=== PATIENT | female | born 1945 | race African-American/Black ===

== ENCOUNTER 2017-03-02 10:34 | Emergency (ER) | payer MEDICARE, MEDICAID ==
[~2017-03-02] VITALS: Ht 172.7 cm; Wt 67.0 kg
[~2017-03-02 10:34] MED LIST: AM10 GT; ASCO500C18 PO; ATOR10TA69 PO; DOCU-138 PO; ERGO500013 PO; FAMO20TA8 PO; FERR325T6 PO; FURO-152 PO; Imdur PO; METO-539 PO; MONT10TA21 PO; NITR0.4T49 SL; POTA10CA42 PO; PREG50CA PO; RIVA10TA PO; TRAM50TA3 PO
[2017-03-02 12:11] LABS: BASOPHILS % 0.6 % (0.0-2.0); EOSINOPHILS % 2.3 % (0.0-5.0); HEMOGLOBIN. 12.2 g/dL (12.0-16.0); LYMPHOCYTES % 19.5 % (20.0-50.0); MEAN CORPUSCULAR HEMOGLOBIN 24.9 pg (28.0-32.0); MEAN CORPUSCULAR VOLUME 79.6 fL (81.0-99.0); MEAN PLATELET VOLUME 8.4 fl (7.4-10.4); MONOCYTES % 6.5 % (2.0-8.0); NEUTROPHILS % 71.1 % (40.0-76.0); PLATELET 278 x1000/uL (130-400); RED BLOOD CELL COUNT 4.89 mill/uL (4.2-5.4); RED CELL DISTRIBUTION WIDTH 16.6 % (11.6-14.6)
[2017-03-02 12:13] LABS: INR 1.6; PARTIAL THROMBOPLASTIN TIME 39.4 sec (23.4-31.0); PROTHROMBIN TIME 16.7 sec (9.4-11.6)
[2017-03-02 12:20] LABS: CARBON DIOXIDE 30 mEq/L (21-32); CHLORIDE 110 mEq/L (98-107)
[2017-03-02 12:22] LABS: TROPONIN I < 0.02 ng/mL (0.00-0.04)
[2017-03-02] MEDS ORDERED: FUROSEMIDE 40MG/4ML VIAL IVP ONE (13:00)
[2017-03-02] MEDS ORDERED: CLONIDINE 0.1MG TABLET PO ONE (13:15)
[2017-03-02] MEDS ORDERED: FUROSEMIDE 40MG TABLET PO ONE (14:00)
[2017-03-02 14:02] VITALS: BP 172/111
== END 2017-03-02 15:10 | disposition home or self-care (01) ==
LOC: ER 10:59
DX: I11.0 Hypertensive heart disease with heart failure (principal); E78.00 Pure hypercholesterolemia, unspecified; J45.909 Unspecified asthma, uncomplicated; I25.2 Old myocardial infarction; Z95.0 Presence of cardiac pacemaker; Z88.6 Allergy status to analgesic agent; Z88.8 Allergy status to other drugs, medicaments and biological substances
CPT/HCPCS: 36415; 71010; 80053; 83690; 83880; 84443; 84484; 85025; 85610; 85730; 93005; 99285

== ENCOUNTER → 2017-04-23 | Outpatient (CLI) | payer MEDICARE, MEDICAID ==
[~2017-04-23] MED LIST changes: +HYDRALAZINE 20MG/ML VIAL IV ONE; +REGADENOSON 0.4 MG/5 ML IV ONE
== END | disposition home or self-care (01) ==
LOC: NM 07:36
PROVIDERS: ATTEND Internal Medicine Cardiovascular Disease
DX: I25.2 Old myocardial infarction (principal); I42.9 Cardiomyopathy, unspecified; I44.7 Left bundle-branch block, unspecified
CPT/HCPCS: 78452; 93017; A9500; J2785

== ENCOUNTER → 2018-04-11 | Outpatient (CLI) | payer MEDICARE, MEDICAID ==
[~2018-04-11] MED LIST changes: -HYDRALAZINE 20MG/ML VIAL IV ONE; -REGADENOSON 0.4 MG/5 ML IV ONE
== END | disposition home or self-care (01) ==
LOC: US 07:38
PROVIDERS: ATTEND Internal Medicine Nephrology
DX: N28.1 Cyst of kidney, acquired (principal)
CPT/HCPCS: 76700

== ENCOUNTER → 2018-09-01 | Outpatient (CLI) | payer MEDICARE, MEDICAID | END | disposition home or self-care (01) | LOC: PVL 09:39 | PROVIDERS: ATTEND Internal Medicine Cardiovascular Disease | DX: I73.9 Peripheral vascular disease, unspecified (principal) | CPT/HCPCS: 93923 ==

== ENCOUNTER 2020-07-12 05:54 | Inpatient (IN) | payer MEDICARE, MEDICAID ==
[~2020-07-12] VITALS: Ht 172.7 cm; Wt 72.6 kg
[~2020-07-12 05:54] MED LIST changes: -AM10 GT; +AMIT10TA7 GT
[2020-07-12] MEDS ORDERED: MORPHINE SULFATE 4 MG/ML CPJ (NOT FOR IM USE) IV SCH (07:30)
[2020-07-12 07:54] LABS: BASOPHILS % 0.3 % (0.0-2.0); EOSINOPHILS % 1.5 % (0.0-5.0); HEMATOCRIT. 36.2 % (36.0-48.0); HEMOGLOBIN. 11.5 g/dL (12.0-16.0); LYMPHOCYTES % 14.5 % (20.0-50.0); MEAN CORPUSCULAR VOLUME 81.7 fL (81.0-99.0); MEAN PLATELET VOLUME 9.6 fl (7.4-10.4); NEUTROPHILS % 76.7 % (40.0-76.0); PLATELET 176 x1000/uL (130-400); RED BLOOD CELL COUNT 4.43 mill/uL (4.2-5.4); RED CELL DISTRIBUTION WIDTH 17.2 % (11.6-14.6)
[2020-07-12 08:03] LABS: CHLORIDE 109 mEq/L (98-107)
[2020-07-12 08:04] LABS: INR 1.9; PROTHROMBIN TIME 19.6 sec (9.6-11.0)
[2020-07-12 09:15] LABS: T4 FREE 1.33 ng/dL (0.76-1.46)
[2020-07-12] MEDS ORDERED: MAGNESIUM 2 G PREMIX 50 ML IV SCH (09:15)
[2020-07-12] MEDS ORDERED: LORAZEPAM 2MG/ML CPJ IV PRN (10:00)
[2020-07-12] MEDS ORDERED: ONDANSETRON HCL 4MG/2ML INJ IV PRN (10:00)
[2020-07-12] MEDS ORDERED: POTASSIUM CHLORIDE INJ 40 MEQ in DEXT 5% WATER 250 ML IV SCH (10:00)
[2020-07-12] MEDS ORDERED: ACETAMINOPHEN 325MG TABLET PO PRN (10:00)
[2020-07-12] MEDS ORDERED: MORPHINE SULFATE 2 MG/ML CPJ (NOT FOR IM USE) IV PRN (10:00)
[2020-07-12 10:16] LABS: PHOSPHORUS 3.3 mg/dL (2.5-4.9)
[2020-07-12 15:20] LABS: CREATINE KINASE MB FRACTION 2.8 ng/mL (0.5-3.6)
[2020-07-12] MEDS: DOCUSATE SODIUM 100MG CAPSULE PO SCH (17:00)
[2020-07-12 17:53] VITALS: BP 184/23
[2020-07-12] MEDS: RIVAROXABAN 10 MG TABLET PO SCH (17:59)
[2020-07-12] MEDS: CLONIDINE 0.1MG TABLET PO PRN (18:00)
[2020-07-12 18:58] VITALS: BP 184/23
[2020-07-12 20:01] VITALS: BP 114/44
[2020-07-12 21:08] VITALS: BP 150/97
[2020-07-12] MEDS: ATORVASTATIN CALCIUM 10MG TABLET PO SCH (21:14)
[2020-07-12] MEDS: METOPROLOL TARTRATE 50MG TABLET PO SCH (21:14)
[2020-07-12] MEDS: PREGABALIN 50 MG CAPSULE PO SCH (21:14)
[2020-07-12] MEDS: AMITRIPTYLINE 10MG TABLET GT SCH (21:20)
[2020-07-12 22:01] VITALS: BP 154/103
[2020-07-12] MEDS: CLONIDINE 0.1MG TABLET PO SCH (23:59)
[2020-07-13] VITALS (13 sets, daily range): BP systolic 141–176; BP diastolic 81–111
[2020-07-13 01:49] LABS: CREATINE KINASE MB FRACTION 2.7 ng/mL (0.5-3.6)
[2020-07-13] MEDS: CLONIDINE 0.1MG TABLET PO SCH ×3 (06:33→22:48)
[2020-07-13 06:42] LABS: BASOPHILS % 0.3 % (0.0-2.0); EOSINOPHILS % 2.4 % (0.0-5.0); HEMATOCRIT. 36.4 % (36.0-48.0); HEMOGLOBIN. 11.5 g/dL (12.0-16.0); LYMPHOCYTES % 21.6 % (20.0-50.0); MEAN CORPUSCULAR VOLUME 82.6 fL (81.0-99.0); MEAN PLATELET VOLUME 9.9 fl (7.4-10.4); MONOCYTES % 6.3 % (2.0-8.0); NEUTROPHILS % 69.4 % (40.0-76.0); PLATELET 171 x1000/uL (130-400); RED BLOOD CELL COUNT 4.41 mill/uL (4.2-5.4); RED CELL DISTRIBUTION WIDTH 16.8 % (11.6-14.6)
[2020-07-13 06:52] LABS: CHLORIDE 112 mEq/L (98-107)
[2020-07-13 07:04] LABS: CREATINE KINASE 93 IU/L (26-192); HDL CHOLESTEROL 56 mg/dL (40-59); LDL CHOLESTEROL 79 mg/dL (5-100)
[2020-07-13 07:08] LABS: CREATINE KINASE MB FRACTION 2.7 ng/mL (0.5-3.6)
[2020-07-13] MEDS ORDERED: FAMOTIDINE(NEO) 1MG/ML SUSP PO SCH (09:00)
[2020-07-13] MEDS: FAMOTIDINE 20MG TABLET PO SCH (09:23)
[2020-07-13] MEDS: FUROSEMIDE 20MG TABLET PO SCH (09:23)
[2020-07-13] MEDS: DOCUSATE SODIUM 100MG CAPSULE PO SCH ×2 (09:23→17:45)
[2020-07-13] MEDS: IPRATROPIUM/ALBUTEROL 0.5-3(2.5)MG/3ML NEB HHN PRN ×3 (09:24→20:46)
[2020-07-13] MEDS: METOPROLOL TARTRATE 50MG TABLET PO SCH ×2 (09:26→20:11)
[2020-07-13] MEDS: CLONIDINE 0.1MG TABLET PO PRN (12:31)
[2020-07-13] MEDS: RIVAROXABAN 10 MG TABLET PO SCH (17:45)
[2020-07-13] MEDS: MONTELUKAST SODIUM 10MG TABLET PO SCH (17:45)
[2020-07-13] MEDS: ATORVASTATIN CALCIUM 10MG TABLET PO SCH (20:12)
[2020-07-13] MEDS: PREGABALIN 50 MG CAPSULE PO SCH (20:12)
[2020-07-13] MEDS: AMITRIPTYLINE 10MG TABLET GT SCH (20:12)
[2020-07-14] VITALS (13 sets, daily range): BP systolic 119–179; BP diastolic 57–108
[2020-07-14] MEDS: CLONIDINE 0.1MG TABLET PO SCH ×3 (06:13→22:00)
[2020-07-14] MEDS: IPRATROPIUM/ALBUTEROL 0.5-3(2.5)MG/3ML NEB HHN PRN ×2 (07:34→20:55)
[2020-07-14] MEDS: FUROSEMIDE 20MG TABLET PO SCH (09:17)
[2020-07-14] MEDS: FAMOTIDINE 20MG TABLET PO SCH (09:17)
[2020-07-14] MEDS: DOCUSATE SODIUM 100MG CAPSULE PO SCH ×2 (09:17→18:09)
[2020-07-14] MEDS: METOPROLOL TARTRATE 50MG TABLET PO SCH ×2 (09:18→21:00)
[2020-07-14 16:01] LABS: BASOPHILS % 0.3 % (0.0-2.0); EOSINOPHILS % 1.8 % (0.0-5.0); HEMATOCRIT. 35.5 % (36.0-48.0); HEMOGLOBIN. 11.3 g/dL (12.0-16.0); LYMPHOCYTES % 13.7 % (20.0-50.0); MEAN CORPUSCULAR HEMOGLOBIN 25.9 pg (28.0-32.0); MEAN CORPUSCULAR VOLUME 81.2 fL (81.0-99.0); MONOCYTES % 7.5 % (2.0-8.0); NEUTROPHILS % 76.7 % (40.0-76.0); PLATELET 177 x1000/uL (130-400); RED BLOOD CELL COUNT 4.37 mill/uL (4.2-5.4); RED CELL DISTRIBUTION WIDTH 16.3 % (11.6-14.6)
[2020-07-14] MEDS: MONTELUKAST SODIUM 10MG TABLET PO SCH (18:09)
[2020-07-14] MEDS: ISOSORB DINIT/HYDRALAZINE HCL 20/37.5MG TABLET PO SCH (18:10)
[2020-07-14] MEDS: CLONIDINE 0.1MG TABLET PO PRN (19:23)
[2020-07-14] MEDS: ATORVASTATIN CALCIUM 10MG TABLET PO SCH (20:28)
[2020-07-14] MEDS: AMITRIPTYLINE 10MG TABLET GT SCH (20:28)
[2020-07-14] MEDS: PREGABALIN 50 MG CAPSULE PO SCH (20:28)
[2020-07-14] MEDS: HYDRALAZINE HCL 50MG TABLET PO SCH (21:38)
[2020-07-15] VITALS (13 sets, daily range): BP systolic 113–159; BP diastolic 63–97
[2020-07-15] MEDS: HYDRALAZINE HCL 50MG TABLET PO SCH ×3 (05:31→21:31)
[2020-07-15 06:42] LABS: HEMATOCRIT 33.8 % (36.0-48.0); MEAN CORPUSCULAR HEMOGLOBIN 26.5 pg (28.0-32.0); MEAN CORPUSCULAR VOLUME 81.7 fL (81.0-99.0); PLATELET 153 x1000/uL (130-400); RED BLOOD CELL COUNT 4.14 mill/uL (4.2-5.4); RED CELL DISTRIBUTION WIDTH 16.7 % (11.6-14.6)
[2020-07-15] MEDS: CLONIDINE 0.1MG TABLET PO SCH ×3 (06:43→21:31)
[2020-07-15] MEDS: FUROSEMIDE 20MG TABLET PO SCH (08:29)
[2020-07-15] MEDS: ISOSORB DINIT/HYDRALAZINE HCL 20/37.5MG TABLET PO SCH ×2 (08:30→17:59)
[2020-07-15] MEDS: DOCUSATE SODIUM 100MG CAPSULE PO SCH ×2 (08:30→17:59)
[2020-07-15] MEDS: FAMOTIDINE 20MG TABLET PO SCH (08:30)
[2020-07-15] MEDS: METOPROLOL TARTRATE 50MG TABLET PO SCH ×2 (08:30→20:20)
[2020-07-15] MEDS ORDERED: POTASSIUM CHLORIDE INJ 40 MEQ in DEXT 5% WATER 250 ML IV NR (09:30)
[2020-07-15] MEDS: IPRATROPIUM/ALBUTEROL 0.5-3(2.5)MG/3ML NEB HHN PRN (16:38)
[2020-07-15] MEDS: MONTELUKAST SODIUM 10MG TABLET PO SCH (17:59)
[2020-07-15] MEDS: PREGABALIN 50 MG CAPSULE PO SCH (20:20)
[2020-07-15] MEDS: ATORVASTATIN CALCIUM 10MG TABLET PO SCH (20:21)
[2020-07-15] MEDS: AMITRIPTYLINE 10MG TABLET GT SCH (20:21)
[2020-07-16] VITALS (12 sets, daily range): BP systolic 102–155; BP diastolic 45–91
[2020-07-16] MEDS: IPRATROPIUM/ALBUTEROL 0.5-3(2.5)MG/3ML NEB HHN PRN ×2 (03:56→21:39)
[2020-07-16] MEDS: HYDRALAZINE HCL 50MG TABLET PO SCH ×3 (05:23→21:37)
[2020-07-16] MEDS: CLONIDINE 0.1MG TABLET PO SCH ×3 (06:31→22:00)
[2020-07-16] MEDS: ISOSORB DINIT/HYDRALAZINE HCL 20/37.5MG TABLET PO SCH (09:04)
[2020-07-16] MEDS: METOPROLOL TARTRATE 50MG TABLET PO SCH ×2 (09:05→20:41)
[2020-07-16] MEDS: DOCUSATE SODIUM 100MG CAPSULE PO SCH ×2 (09:05→17:57)
[2020-07-16] MEDS: FUROSEMIDE 20MG TABLET PO SCH (09:05)
[2020-07-16] MEDS: FAMOTIDINE 20MG TABLET PO SCH (09:05)
[2020-07-16] MEDS ORDERED: ENOXAPARIN 40MG/0.4ML SYR SUBCUT NR (10:45)
[2020-07-16 11:36] LABS: BASOPHILS % 0.4 % (0.0-2.0); EOSINOPHILS % 3.8 % (0.0-5.0); HEMATOCRIT. 34.8 % (36.0-48.0); HEMOGLOBIN. 11.1 g/dL (12.0-16.0); LYMPHOCYTES % 14.9 % (20.0-50.0); MEAN CORPUSCULAR HEMOGLOBIN 25.9 pg (28.0-32.0); MEAN CORPUSCULAR VOLUME 81.5 fL (81.0-99.0); MEAN PLATELET VOLUME 9.7 fl (7.4-10.4); MONOCYTES % 9.3 % (2.0-8.0); NEUTROPHILS % 71.6 % (40.0-76.0); PLATELET 194 x1000/uL (130-400); RED BLOOD CELL COUNT 4.28 mill/uL (4.2-5.4); RED CELL DISTRIBUTION WIDTH 16.6 % (11.6-14.6)
[2020-07-16] MEDS: MONTELUKAST SODIUM 10MG TABLET PO SCH (17:57)
[2020-07-16] MEDS: ATORVASTATIN CALCIUM 10MG TABLET PO SCH (20:39)
[2020-07-16] MEDS: AMITRIPTYLINE 10MG TABLET GT SCH (20:40)
[2020-07-16] MEDS: PREGABALIN 50 MG CAPSULE PO SCH (20:41)
[2020-07-17] VITALS (10 sets, daily range): BP systolic 118–195; BP diastolic 60–107
[2020-07-17] MEDS: HYDRALAZINE HCL 50MG TABLET PO SCH ×2 (05:05→14:06)
[2020-07-17] MEDS: CLONIDINE 0.1MG TABLET PO SCH ×2 (06:29→14:06)
[2020-07-17 08:16] LABS: BASOPHILS % 0.5 % (0.0-2.0); EOSINOPHILS % 3.5 % (0.0-5.0); HEMATOCRIT. 36.7 % (36.0-48.0); HEMOGLOBIN. 11.6 g/dL (12.0-16.0); LYMPHOCYTES % 19.5 % (20.0-50.0); MEAN CORPUSCULAR HEMOGLOBIN 25.7 pg (28.0-32.0); MEAN CORPUSCULAR VOLUME 81.8 fL (81.0-99.0); MEAN PLATELET VOLUME 9.8 fl (7.4-10.4); MONOCYTES % 8.7 % (2.0-8.0); NEUTROPHILS % 67.8 % (40.0-76.0); PLATELET 219 x1000/uL (130-400); RED BLOOD CELL COUNT 4.49 mill/uL (4.2-5.4); RED CELL DISTRIBUTION WIDTH 16.8 % (11.6-14.6)
[2020-07-17] MEDS: FUROSEMIDE 20MG TABLET PO SCH (08:36)
[2020-07-17] MEDS: FAMOTIDINE 20MG TABLET PO SCH (08:36)
[2020-07-17] MEDS: DOCUSATE SODIUM 100MG CAPSULE PO SCH (08:36)
[2020-07-17] MEDS: METOPROLOL TARTRATE 50MG TABLET PO SCH (08:37)
[2020-07-17] MEDS: CLONIDINE 0.1MG TABLET PO PRN (15:41)
== END 2020-07-17 16:09 | disposition short-term general hospital (02) | DRG 314 ==
LOC: ER 05:54 → 3WST 08:37 → ENRESERV 14:31 → EDBEDREQ 16:31
PROVIDERS: ADMIT Internal Medicine Nephrology; ATTEND Internal Medicine Nephrology
DX: T82.118A Breakdown (mechanical) of other cardiac electronic device, initial encounter (principal); I49.01 Ventricular fibrillation; I13.0 Hypertensive heart and chronic kidney disease with heart failure and stage 1 through stage 4 chronic kidney disease, or unspecified chronic kidney disease; I50.22 Chronic systolic (congestive) heart failure; F41.9 Anxiety disorder, unspecified; I25.10 Atherosclerotic heart disease of native coronary artery without angina pectoris; I73.9 Peripheral vascular disease, unspecified; Z96.649 Presence of unspecified artificial hip joint; J44.9 Chronic obstructive pulmonary disease, unspecified; I48.0 Paroxysmal atrial fibrillation; I44.7 Left bundle-branch block, unspecified; E87.6 Hypokalemia; E78.5 Hyperlipidemia, unspecified; I65.29 Occlusion and stenosis of unspecified carotid artery; Z20.822 Contact with and (suspected) exposure to COVID-19; Y71.2 Prosthetic and other implants, materials and accessory cardiovascular devices associated with adverse incidents; Z79.899 Other long term (current) drug therapy; Z79.01 Long term (current) use of anticoagulants; Z95.5 Presence of coronary angioplasty implant and graft; Z95.810 Presence of automatic (implantable) cardiac defibrillator; Z82.49 Family history of ischemic heart disease and other diseases of the circulatory system; Z88.5 Allergy status to narcotic agent; Z88.8 Allergy status to other drugs, medicaments and biological substances; I25.2 Old myocardial infarction; Y92.89 Other specified places as the place of occurrence of the external cause; N18.1 Chronic kidney disease, stage 1
CPT/HCPCS: 36415; 71045; 80048; 80053; 80061; 82140; 82550; 82553; 83036; 83735; 83880; 84100; 84439; 84443; 84484; 85025; 85027; 85379; 87426; 93005; 93306; 94640; 99291; J1650; J2270; J3475; J3480; J7060

== ENCOUNTER → 2020-08-01 | Outpatient (CLI) | payer MEDICARE, MEDICAID | END | disposition home or self-care (01) | LOC: RAD 14:24 | PROVIDERS: ATTEND Internal Medicine Clinical Cardiac Electrophysiology | DX: J94.9 Pleural condition, unspecified (principal); I51.7 Cardiomegaly; Z95.810 Presence of automatic (implantable) cardiac defibrillator | CPT/HCPCS: 71046 ==

== ENCOUNTER 2021-08-21 20:47 | Emergency (ER) | payer MEDICARE, MEDICAID ==
[~2021-08-21] VITALS: Ht 172.7 cm; Wt 70.5 kg
[2021-08-21 21:50] VITALS: BP 157/79
== END 2021-08-22 01:16 | disposition left against medical advice (07) ==
LOC: ER 20:47
DX: Z53.21 Procedure and treatment not carried out due to patient leaving prior to being seen by health care provider (principal)

== ENCOUNTER 2021-10-03 09:53 | Emergency (ER) | payer MEDICARE, MEDICAID ==
[~2021-10-03] VITALS: Ht 170.2 cm; Wt 82.0 kg
[2021-10-03 10:15] VITALS: BP 131/84
[2021-10-03] MEDS: ACETAMINOPHEN 500MG TABLET PO ONE ×2 (10:30→11:00)
[2021-10-03] MEDS ORDERED: ACET-2708 MT (11:52)
== END 2021-10-03 12:49 | disposition home or self-care (01) ==
LOC: ER 10:36
DX: S70.11XA Contusion of right thigh, initial encounter (principal); J44.1 Chronic obstructive pulmonary disease with (acute) exacerbation; I25.2 Old myocardial infarction; I10 Essential (primary) hypertension; Z88.5 Allergy status to narcotic agent; Z79.899 Other long term (current) drug therapy; W18.30XA Fall on same level, unspecified, initial encounter; Y93.01 Activity, walking, marching and hiking; Y92.89 Other specified places as the place of occurrence of the external cause; Y99.8 Other external cause status
CPT/HCPCS: 73590; 73610; 73630; 99284

== ENCOUNTER 2023-09-08 08:13 | Inpatient (IN) | payer MEDICARE, MEDICAID ==
[~2023-09-08] VITALS: Ht 172.7 cm; Wt 66.3 kg
[~2023-09-08 08:13] MED LIST changes: +ACET-2708 MT; -AMIT10TA7 GT; +AMIT10TA7 PO; +MONT-46 PO; -MONT10TA21 PO; -POTA10CA42 PO; +POTA10CA83 PO
[2023-09-08 08:40] LABS: BASOPHILS % 0.4 % (0.0-2.0); EOSINOPHILS % 2.5 % (0.0-5.0); HEMATOCRIT. 35.5 % (36.0-48.0); HEMOGLOBIN. 11.1 g/dL (12.0-16.0); LYMPHOCYTES % 18.3 % (20.0-50.0); MEAN CORPUSCULAR HGB CONC 31.4 g/dL (31.0-37.0); MEAN CORPUSCULAR VOLUME 82.7 fL (81.0-99.0); MEAN PLATELET VOLUME 9.7 fl (7.4-10.4); MONOCYTES % 6.5 % (2.0-8.0); NEUTROPHILS % 72.3 % (40.0-76.0); PLATELET 184 x1000/uL (130-400); RED BLOOD CELL COUNT 4.29 mill/uL (4.2-5.4); RED CELL DISTRIBUTION WIDTH 16.2 % (11.6-14.6); WHITE BLOOD COUNT 6.2 x1000/uL (4.5-11.0)
[2023-09-08 08:51] LABS: CHLORIDE 108 mEq/L (98-107); POTASSIUM 3.3 mEq/L (3.5-5.1); SODIUM 143 mEq/L (136-145)
[2023-09-08 08:52] LABS: CALCIUM 9.6 mg/dL (8.7-10.4); CARBON DIOXIDE 26 mEq/L (21-32)
[2023-09-08 08:56] LABS: CREATININE 2.1 mg/dL (0.6-1.0)
[2023-09-08 08:57] LABS: GLUCOSE 92 mg/dL (70-105); UREA NITROGEN BLOOD 25 mg/dL (9-23)
[2023-09-08 08:59] LABS: ALANINE AMINOTRANSFERASE 9 IU/L (10-49); ALBUMIN 3.9 g/dL (3.2-4.8); ASPARTATE AMINOTRANSFERASE 14 IU/L (<34); BILIRUBIN TOTAL 0.5 mg/dL (0.1-1.0); PROTEIN TOTAL 7.3 g/dL (6.0-8.3)
[2023-09-08] MEDS ORDERED: ONDANSETRON HCL 4MG/2ML INJ IV PRN ×2 (10:15→16:00)
[2023-09-08] MEDS ORDERED: ACETAMINOPHEN 325MG TABLET PO PRN ×3 (10:15→16:00)
[2023-09-08] MEDS ORDERED: CLON0.1T PO (10:40)
[2023-09-08] MEDS ORDERED: ALPR-392 PO (10:40)
[2023-09-08] MEDS ORDERED: DRON400T PO (10:40)
[2023-09-08] MEDS ORDERED: APIX2.5T PO (10:40)
[2023-09-08] MEDS ORDERED: SACU1TAB PO (10:40)
[2023-09-08] MEDS ORDERED: MONT-39 PO (10:42)
[2023-09-08] MEDS ORDERED: PREG50CA64 PO (10:42)
[2023-09-08] MEDS: POTASSIUM CHLORIDE 20MEQ TABLET SR PO NR (15:16)
[2023-09-08] MEDS ORDERED: IPRATROPIUM/ALBUTEROL 0.5-3(2.5)MG/3ML NEB HHN PRN (16:00)
[2023-09-08] MEDS ORDERED: DOCUSATE SODIUM 100MG CAPSULE PO PRN (16:00)
[2023-09-08] MEDS ORDERED: NON FORMULARY PATIENT HOME MED XX SCH (16:30)
[2023-09-08 17:15] LABS: TROPONIN I HIGH SENSITIVITY 5 ng/L (3.0-34)
[2023-09-08] MEDS ORDERED: ENOXAPARIN 30MG/0.3ML SYR SUBCUT SCH (18:00)
[2023-09-08] MEDS ORDERED: DRONEDARONE 400MG TABLET PO SCH (21:00)
[2023-09-08] MEDS ORDERED: METOPROLOL TARTRATE 50MG TABLET PO SCH (21:00)
[2023-09-08] MEDS: METOPROLOL TARTRATE 25MG TABLET PO SCH (21:58)
[2023-09-08] MEDS: APIXABAN 2.5 MG TABLET PO SCH (21:58)
[2023-09-08] MEDS: PREGABALIN 50 MG CAPSULE PO SCH (21:59)
[2023-09-08] MEDS: AMITRIPTYLINE 10MG TABLET GT SCH (21:59)
[2023-09-08 23:50] VITALS: BP 160/106; PULSE 70; RESP 17; TEMP 97.7
[2023-09-08 23:54] LABS: CLARITY URINE CLEAR (CLEAR); COLOR URINE YELLOW (YELLOW); GLUCOSE URINE NEGATIVE (NEGATIVE); KETONES URINE NEGATIVE (NEGATIVE); LEUKOCYTE ESTERASE URINE NEGATIVE (NEGATIVE); NITRITE URINE NEGATIVE (NEGATIVE); OCCULT BLOOD URINE NEGATIVE (NEGATIVE); PH URINE 5.5 (4.5-8.0); PROTEIN URINE TRACE (NEGATIVE); SPECIFIC GRAVITY URINE 1.012 (1.005-1.030); UROBILINOGEN URINE 0.2 E.U./dL (0.2-1.0)
[2023-09-09] VITALS: BP 146/109; PULSE 70; RESP 14; TEMP 97.7
[2023-09-09 00:07] LABS: *AMPHETAMINES SCREEN URINE NEGATIVE (NEGATIVE); *BARBITURATES SCREEN URINE NEGATIVE (NEGATIVE); *BENZODIAZEPINES SCREEN URINE NEGATIVE (NEGATIVE); *COCAINE SCREEN URINE NEGATIVE (NEGATIVE); CANNABINOID URINE SCREEN NEGATIVE (NEGATIVE); ECSTASY MDMA SCREEN URINE NEGATIVE (NEGATIVE); METHADONE URINE SCREEN NEGATIVE (NEGATIVE); OPIATES URINE SCREEN NEGATIVE (NEGATIVE); PHENCYCLIDINE URINE SCREEN NEGATIVE (NEGATIVE)
[2023-09-09 00:20] LABS: RBC URINE 0-2 /hpf (0-2); WBC URINE NONE SEEN /hpf (0-2)
[2023-09-09 00:21] LABS: BACTERIA URINE NONE SEEN; SQUAMOUS EPITHELIAL CELL URINE 1+ /lpf (RARE/1+)
[2023-09-09] MEDS: CLONIDINE 0.1MG TABLET PO PRN (00:28)
[2023-09-09 04:00] VITALS: BP 137/89; PULSE 70; RESP 15; TEMP 97.5
[2023-09-09 06:31] LABS: POTASSIUM 3.7 mEq/L (3.5-5.1)
[2023-09-09 06:32] LABS: CALCIUM 9.8 mg/dL (8.7-10.4)
[2023-09-09 06:34] LABS: BASOPHILS % 0.4 % (0.0-2.0); EOSINOPHILS % 3.2 % (0.0-5.0); HEMATOCRIT. 37.4 % (36.0-48.0); HEMOGLOBIN. 11.7 g/dL (12.0-16.0); LYMPHOCYTES % 18.5 % (20.0-50.0); MEAN CORPUSCULAR HGB CONC 31.2 g/dL (31.0-37.0); MEAN CORPUSCULAR VOLUME 83.3 fL (81.0-99.0); MEAN PLATELET VOLUME 9.8 fl (7.4-10.4); MONOCYTES % 6.4 % (2.0-8.0); NEUTROPHILS % 71.5 % (40.0-76.0); PLATELET 177 x1000/uL (130-400); RED BLOOD CELL COUNT 4.49 mill/uL (4.2-5.4); RED CELL DISTRIBUTION WIDTH 16.2 % (11.6-14.6); WHITE BLOOD COUNT 7.9 x1000/uL (4.5-11.0)
[2023-09-09 06:37] LABS: CREATININE 1.8 mg/dL (0.6-1.0)
[2023-09-09 06:42] LABS: T4 FREE 1.15 ng/dL (0.89-1.76); THYROID STIMULATING HORMONE 1.86 uIU/mL (0.55-4.78)
[2023-09-09 07:00] LABS: HEPATITIS B SURFACE ANTIGEN NEGATIVE (Negative)
[2023-09-09 07:21] LABS: HEPATITIS C AB REACTIVE (Pos) (Negative)
[2023-09-09 08:00] VITALS: BP 118/99; PULSE 75; RESP 18; TEMP 98
[2023-09-09] MEDS: FUROSEMIDE 40MG/4ML VIAL IV SCH (08:13)
[2023-09-09] MEDS: FAMOTIDINE 20MG TABLET PO SCH (08:13)
[2023-09-09] MEDS ORDERED: RIVAROXABAN 10 MG TABLET PO SCH (09:00)
[2023-09-09 12:00] VITALS: BP 148/107; PULSE 70; RESP 25; TEMP 98
[2023-09-09 16:00] VITALS: PULSE 71; RESP 19; TEMP 98.2
[2023-09-09] MEDS ORDERED: OLOP2.5D15 EACHEYE (17:39)
[2023-09-09] MEDS ORDERED: ALBU6.7H15 INH (17:39)
[2023-09-09] MEDS ORDERED: LATA2.5D14 EACHEYE (17:39)
[2023-09-09] MEDS ORDERED: CYAN-50 PO (17:39)
[2023-09-09] MEDS ORDERED: NITR0.4T49 SL (17:39)
[2023-09-09] MEDS ORDERED: CLON0.2T PO (17:39)
[2023-09-09] MEDS ORDERED: CETI5TAB5 PO (17:39)
[2023-09-09 20:00] VITALS: BP 156/109; PULSE 71; RESP 19; TEMP 98.5
[2023-09-09] MEDS: METOPROLOL TARTRATE 50MG TABLET PO SCH (20:46)
[2023-09-10] VITALS (7 sets, daily range): BP systolic 123–163; BP diastolic 98–115; PULSE 70–76; RESP 12–19; TEMP 98–98.3; O2SAT 96
[2023-09-10 06:05] LABS: POTASSIUM 3.5 mEq/L (3.5-5.1)
[2023-09-10 06:07] LABS: CALCIUM 9.7 mg/dL (8.7-10.4)
[2023-09-10 06:11] LABS: CREATININE 1.9 mg/dL (0.6-1.0)
[2023-09-10 06:29] LABS: BASOPHILS % 0.3 % (0.0-2.0); EOSINOPHILS % 2.6 % (0.0-5.0); HEMATOCRIT. 37.3 % (36.0-48.0); HEMOGLOBIN. 11.7 g/dL (12.0-16.0); LYMPHOCYTES % 18.8 % (20.0-50.0); MEAN CORPUSCULAR HEMOGLOBIN 25.7 pg (28.0-32.0); MEAN CORPUSCULAR HGB CONC 31.3 g/dL (31.0-37.0); MEAN CORPUSCULAR VOLUME 82.1 fL (81.0-99.0); MONOCYTES % 7.6 % (2.0-8.0); NEUTROPHILS % 70.7 % (40.0-76.0); PLATELET 176 x1000/uL (130-400); RED BLOOD CELL COUNT 4.54 mill/uL (4.2-5.4); RED CELL DISTRIBUTION WIDTH 16.4 % (11.6-14.6); WHITE BLOOD COUNT 7.3 x1000/uL (4.5-11.0)
[2023-09-10] MEDS: POTASSIUM CHLORIDE 20MEQ TABLET SR PO NR (08:56)
[2023-09-10] MEDS: SACUBITRIL/VALSARTAN 24MG/26MG TABLET PO SCH (09:11)
[2023-09-10] MEDS: IPRATROPIUM/ALBUTEROL 0.5-3(2.5)MG/3ML NEB NEB PRN (09:55)
[2023-09-10] MEDS: FUROSEMIDE 40MG/4ML VIAL IVP NR (13:38)
== END 2023-09-10 15:09 | disposition home or self-care (01) | DRG 291 ==
LOC: ER 08:23 → 5WST 11:46 → EDBEDREQ 11:52 → EDBEDREQTM 11:52 → 3WST 22:40
PROVIDERS: ADMIT Internal Medicine; ATTEND Internal Medicine
DX: I13.0 Hypertensive heart and chronic kidney disease with heart failure and stage 1 through stage 4 chronic kidney disease, or unspecified chronic kidney disease (principal); I50.33 Acute on chronic diastolic (congestive) heart failure; J96.00 Acute respiratory failure, unspecified whether with hypoxia or hypercapnia; N17.9 Acute kidney failure, unspecified; N18.9 Chronic kidney disease, unspecified; S93.409A Sprain of unspecified ligament of unspecified ankle, initial encounter; M79.89 Other specified soft tissue disorders; E78.5 Hyperlipidemia, unspecified; E87.6 Hypokalemia; F41.9 Anxiety disorder, unspecified; I25.10 Atherosclerotic heart disease of native coronary artery without angina pectoris; I48.91 Unspecified atrial fibrillation; I73.9 Peripheral vascular disease, unspecified; Z96.649 Presence of unspecified artificial hip joint; Z79.01 Long term (current) use of anticoagulants; Z79.899 Other long term (current) drug therapy; Z82.49 Family history of ischemic heart disease and other diseases of the circulatory system; Z95.810 Presence of automatic (implantable) cardiac defibrillator; Z95.5 Presence of coronary angioplasty implant and graft; Z88.8 Allergy status to other drugs, medicaments and biological substances
CPT/HCPCS: 36415; 71045; 73610; 78582; 80048; 80053; 80061; 80305; 81003; 82962; 83880; 84439; 84443; 84481; 84484; 85025; 85379; 86705; 87340; 93005; 93306; 93971; 94640; 99285; A9558; J1940

== ENCOUNTER 2023-09-27 18:22 | Inpatient (IN) | payer MEDICARE, MEDICAID ==
[~2023-09-27] VITALS: Ht 160 cm; Wt 69.9 kg
[2023-09-27 18:00] VITALS: BP 138/82; PULSE 69; RESP 18; TEMP 98.6
[~2023-09-27 18:22] MED LIST changes: -ACET-2708 MT; +ALBU6.7H15 INH; +ALPR-392 PO; +APIX2.5T PO; -ASCO500C18 PO; +CLON0.1T PO; +CYAN-50 PO; -DOCU-138 PO; +DRON400T PO; -ERGO500013 PO; -FERR325T6 PO; -Imdur PO; +LATA2.5D14 EACHEYE; +MONT-39 PO; -MONT-46 PO; +OLOP2.5D15 EACHEYE; +POTA-202 PO; -POTA10CA83 PO; -PREG50CA PO; +PREG50CA64 PO; -RIVA10TA PO; +SACU1TAB PO; -TRAM50TA3 PO
[2023-09-27] MEDS ORDERED: ONDANSETRON HCL 4MG/2ML INJ IV PRN (18:30)
[2023-09-27] MEDS ORDERED: IPRATROPIUM/ALBUTEROL 0.5-3(2.5)MG/3ML NEB HHN PRN (18:30)
[2023-09-27 20:00] VITALS: BP 159/102; PULSE 74; RESP 20; TEMP 97.6
[2023-09-27] MEDS: METOPROLOL TARTRATE 50MG TABLET PO SCH (20:28)
[2023-09-27] MEDS: APIXABAN 2.5 MG TABLET PO SCH (20:28)
[2023-09-27] MEDS: PREGABALIN 50 MG CAPSULE PO SCH (20:28)
[2023-09-27] MEDS: MONTELUKAST SODIUM 10MG TABLET PO SCH (20:28)
[2023-09-27] MEDS: AMITRIPTYLINE 10MG TABLET PO SCH (20:40)
[2023-09-27 20:50] VITALS: PULSE 78; RESP 18
[2023-09-27] MEDS: IPRATROPIUM BROMIDE (0.02%) 0.5MG/2.5ML NEB HHN SCH (20:52)
[2023-09-27] MEDS: HYDRALAZINE HCL 100MG TABLET PO SCH (21:47)
[2023-09-27 23:00] VITALS: BP 154/90; PULSE 70
[2023-09-28 06:58] LABS: BASOPHILS % 0.5 % (0.0-2.0); EOSINOPHILS % 4.4 % (0.0-5.0); HEMOGLOBIN. 11.9 g/dL (12.0-16.0); LYMPHOCYTES % 16.8 % (20.0-50.0); MEAN CORPUSCULAR HEMOGLOBIN 25.4 pg (28.0-32.0); MEAN CORPUSCULAR HGB CONC 31.2 g/dL (31.0-37.0); MEAN CORPUSCULAR VOLUME 81.5 fL (81.0-99.0); MEAN PLATELET VOLUME 10.2 fl (7.4-10.4); NEUTROPHILS % 70.3 % (40.0-76.0); PLATELET 177 x1000/uL (130-400); RED BLOOD CELL COUNT 4.67 mill/uL (4.2-5.4); RED CELL DISTRIBUTION WIDTH 16.3 % (11.6-14.6); WHITE BLOOD COUNT 7.2 x1000/uL (4.5-11.0)
[2023-09-28 07:21] LABS: CHLORIDE 109 mEq/L (98-107); POTASSIUM 3.8 mEq/L (3.5-5.1); SODIUM 142 mEq/L (136-145)
[2023-09-28 07:22] LABS: CALCIUM 9.9 mg/dL (8.7-10.4); CARBON DIOXIDE 25 mEq/L (21-32)
[2023-09-28 07:27] LABS: ALANINE AMINOTRANSFERASE 14 IU/L (10-49); GLUCOSE 94 mg/dL (70-105); UREA NITROGEN BLOOD 25 mg/dL (9-23)
[2023-09-28 07:29] LABS: ALBUMIN 3.8 g/dL (3.2-4.8); ASPARTATE AMINOTRANSFERASE 21 IU/L (<34); BILIRUBIN TOTAL 0.4 mg/dL (0.1-1.0); PROTEIN TOTAL 6.8 g/dL (6.0-8.3)
[2023-09-28 07:54] LABS: HEPATITIS B SURFACE ANTIGEN NEGATIVE (Negative)
[2023-09-28 08:00] VITALS: BP 130/67; PULSE 73; RESP 17; TEMP 97
[2023-09-28] MEDS ORDERED: IPRATROPIUM BROMIDE (0.02%) 0.5MG/2.5ML NEB HHN PRN (08:00)
[2023-09-28 08:16] LABS: HEPATITIS C AB REACTIVE (Pos) (Negative)
[2023-09-28 08:50] LABS: BG BASE EXCESS 1.6 mmol/L (-2.0-2.0); BG CARBOXYHEMOGLOBIN 0.3 % (0.5-1.5); BG DEOXYHEMOGLOBIN 0.9 % (0.0-5.0); BG FRACTION INSPIRED OXYGEN 28; BG HCO3 ACT 25.7 mmol/L (22.0-26.0); BG METHEMOGLOBIN 0.1 % (0.0-1.5); BG OXYGEN SATURATION 99.1 % (92.0-98.5); BG OXYHEMOGLOBIN 98.7 % (94.0-97.0); BG PCO2 38.5 mmHg (35.0-45.0); BG PH 7.442 (7.350-7.450); BG PO2 133.3 mmHg (75.0-100.0); BG SAMPLE SITE RIGHT BRACHIAL; BG VENT MODE NASAL CANNULA
[2023-09-28] MEDS: FUROSEMIDE 40MG/4ML VIAL IVP NR (08:57)
[2023-09-28] MEDS: FUROSEMIDE 40MG TABLET PO SCH (08:58)
[2023-09-28] MEDS: POTASSIUM CHLORIDE 20MEQ TABLET SR PO SCH (08:58)
[2023-09-28] MEDS: AZITHROMYCIN 500 MG TABLET PO SCH (08:58)
[2023-09-28] MEDS: FAMOTIDINE 20MG TABLET PO SCH (08:59)
[2023-09-28] MEDS ORDERED: AZITHROMYCIN 500MG/250ML 250 ML IV SCH (09:00)
[2023-09-28] MEDS: DEXTROSE 50% WATER 50ML SYRINGE IV NR ×2 (12:23→12:45)
[2023-09-28] MEDS ORDERED: IOHEXOL-350 100 ML BOTTLE ONE (12:59)
[2023-09-28] MEDS ORDERED: SODIUM CHLORIDE 0.9% 1,000 ML IV NR (13:30)
[2023-09-28 16:10] LABS: AMMONIA < 17 uMol/L (<32)
[2023-09-28 16:14] LABS: INR 1.2; PROTHROMBIN TIME 13.3 sec (9.6-11.0)
[2023-09-28 20:00] VITALS: BP 148/98; PULSE 70; RESP 18; TEMP 97.8
[2023-09-29 05:37] LABS: BASOPHILS % 0.4 % (0.0-2.0); EOSINOPHILS % 3.4 % (0.0-5.0); HEMATOCRIT. 37.1 % (36.0-48.0); HEMOGLOBIN. 11.8 g/dL (12.0-16.0); MEAN CORPUSCULAR HEMOGLOBIN 25.8 pg (28.0-32.0); MEAN CORPUSCULAR HGB CONC 31.7 g/dL (31.0-37.0); MEAN CORPUSCULAR VOLUME 81.4 fL (81.0-99.0); MEAN PLATELET VOLUME 9.9 fl (7.4-10.4); MONOCYTES % 8.2 % (2.0-8.0); PLATELET 171 x1000/uL (130-400); RED BLOOD CELL COUNT 4.56 mill/uL (4.2-5.4); RED CELL DISTRIBUTION WIDTH 16.4 % (11.6-14.6); WHITE BLOOD COUNT 7.6 x1000/uL (4.5-11.0)
[2023-09-29 05:57] LABS: CALCIUM 9.7 mg/dL (8.7-10.4)
[2023-09-29] MEDS: CLONIDINE 0.1MG TABLET PO PRN (07:11)
[2023-09-29 08:00] VITALS: BP 174/110; PULSE 70; RESP 18; TEMP 97.6
[2023-09-29 20:00] VITALS: BP 156/98; PULSE 68; RESP 20; TEMP 97.9
[2023-09-30 08:00] VITALS: BP 140/112; PULSE 69; RESP 20; TEMP 97.7
[2023-09-30] MEDS: DOXAZOSIN MESYLATE 2MG TABLET PO SCH (11:30)
[2023-09-30] MEDS: ACETAMINOPHEN 325MG TABLET PO PRN (11:43)
[2023-09-30] MEDS: DEXT 5%/0.45% NACL 1000ML 1,000 ML IV SCH (14:30)
[2023-09-30 18:47] LABS: CLARITY URINE CLEAR (CLEAR); COLOR URINE YELLOW (YELLOW); GLUCOSE URINE NEGATIVE (NEGATIVE); KETONES URINE NEGATIVE (NEGATIVE); LEUKOCYTE ESTERASE URINE NEGATIVE (NEGATIVE); NITRITE URINE NEGATIVE (NEGATIVE); OCCULT BLOOD URINE NEGATIVE (NEGATIVE); PH URINE 5.5 (4.5-8.0); PROTEIN URINE 1+ (NEGATIVE); SPECIFIC GRAVITY URINE 1.016 (1.005-1.030); UROBILINOGEN URINE 0.2 E.U./dL (0.2-1.0)
[2023-09-30 18:58] LABS: BACTERIA URINE NONE SEEN; RBC URINE NONE SEEN /hpf (0-2); SQUAMOUS EPITHELIAL CELL URINE 1+ /lpf (RARE/1+); WBC URINE 0-2 /hpf (0-2)
[2023-09-30 20:00] VITALS: BP 132/73; PULSE 70; RESP 18; TEMP 98.2
[2023-10-01 08:00] VITALS: BP 158/75; PULSE 70; RESP 18; TEMP 97.2
[2023-10-01] MEDS: MEGESTROL ACETATE 400 MG/10 ML UDC PO SCH (08:41)
[2023-10-01] MEDS: DOCUSATE SODIUM 100MG CAPSULE PO SCH (15:11)
[2023-10-01] MEDS: LACTULOSE 20G/30ML UDC PO SCH (15:11)
[2023-10-01 20:00] VITALS: BP 126/90; PULSE 69; RESP 18; TEMP 97.6
[2023-10-02] MEDS: PROMETHAZINE/DEXTROMETHORPHAN 6.25-15MG/5ML PO PRN (02:50)
[2023-10-02 08:00] VITALS: BP 127/73; PULSE 66; RESP 17; TEMP 96.4
[2023-10-02 20:00] VITALS: BP 139/81; PULSE 70; RESP 18; TEMP 98.6
[2023-10-03 07:43] LABS: POTASSIUM 4.8 mEq/L (3.5-5.1)
[2023-10-03 07:44] LABS: BASOPHILS % 0.9 % (0.0-2.0); CALCIUM 10.3 mg/dL (8.7-10.4); DIFFERENTIAL COMMENT 0; EOSINOPHILS % 3.4 % (0.0-5.0); HEMATOCRIT. 35.7 % (36.0-48.0); HEMOGLOBIN. 10.7 g/dL (12.0-16.0); LYMPHOCYTES % 22.7 % (20.0-50.0); MEAN CORPUSCULAR HEMOGLOBIN 25.7 pg (28.0-32.0); MEAN CORPUSCULAR HGB CONC 30.1 g/dL (31.0-37.0); MEAN CORPUSCULAR VOLUME 85.6 fL (81.0-99.0); MEAN PLATELET VOLUME 9.7 fl (7.4-10.4); MONOCYTES % 10.5 % (2.0-8.0); NEUTROPHILS % 62.5 % (40.0-76.0); PLATELET 199 x1000/uL (130-400); RED BLOOD CELL COUNT 4.17 mill/uL (4.2-5.4); RED CELL DISTRIBUTION WIDTH 16.9 % (11.6-14.6); WHITE BLOOD COUNT 6.3 x1000/uL (4.5-11.0)
[2023-10-03 07:48] LABS: CREATININE 2.3 mg/dL (0.6-1.0)
[2023-10-03 08:00] VITALS: BP 105/67; PULSE 69; RESP 18; TEMP 96.6
[2023-10-03] MEDS ORDERED: IPRATROPIUM BROMIDE (0.02%) 0.5MG/2.5ML NEB HHN PRN (12:00)
[2023-10-03] MEDS: BENZONATATE 100MG CAPSULE PO PRN (17:07)
[2023-10-03 20:00] VITALS: BP 111/64; PULSE 76; RESP 18; TEMP 97.2
[2023-10-04 08:00] VITALS: BP 160/89; PULSE 71; RESP 20; TEMP 97.5
[2023-10-04] MEDS: FUROSEMIDE 20MG TABLET PO SCH (09:01)
[2023-10-04 20:00] VITALS: BP 124/81; PULSE 72; RESP 18; TEMP 97
[2023-10-05 08:00] VITALS: BP 106/64; PULSE 69; RESP 18; TEMP 98.8
[2023-10-05 16:22] LABS: BASOPHILS % 0.6 % (0.0-2.0); HEMATOCRIT. 37.5 % (36.0-48.0); HEMOGLOBIN. 11.8 g/dL (12.0-16.0); LYMPHOCYTES % 14.2 % (20.0-50.0); MEAN CORPUSCULAR HEMOGLOBIN 25.9 pg (28.0-32.0); MEAN CORPUSCULAR HGB CONC 31.4 g/dL (31.0-37.0); MEAN CORPUSCULAR VOLUME 82.5 fL (81.0-99.0); MEAN PLATELET VOLUME 10.1 fl (7.4-10.4); MONOCYTES % 8.8 % (2.0-8.0); NEUTROPHILS % 75.4 % (40.0-76.0); PLATELET 255 x1000/uL (130-400); RED BLOOD CELL COUNT 4.55 mill/uL (4.2-5.4); RED CELL DISTRIBUTION WIDTH 16.8 % (11.6-14.6); WHITE BLOOD COUNT 9.7 x1000/uL (4.5-11.0)
[2023-10-05 16:37] LABS: POTASSIUM 5.1 mEq/L (3.5-5.1)
[2023-10-05 16:39] LABS: CALCIUM 10.8 mg/dL (8.7-10.4)
[2023-10-05 16:44] LABS: CREATININE 2.1 mg/dL (0.6-1.0)
[2023-10-05 20:00] VITALS: BP 159/74; PULSE 69; RESP 18; TEMP 97.9
[2023-10-06 08:00] VITALS: BP 146/88; PULSE 70; RESP 18; TEMP 98.2
[2023-10-06] MEDS: SODIUM POLYSTYRENE SULFONATE 15 G/60 ML BOT PO NR (10:03)
[2023-10-06] MEDS: ALBUTEROL 6.7GM HFA INHALER ORI PRN (14:04)
[2023-10-06 20:00] VITALS: BP 141/87; PULSE 96; RESP 18; TEMP 98.7
[2023-10-07 07:27] LABS: POTASSIUM 3.8 mEq/L (3.5-5.1)
[2023-10-07 07:28] LABS: CALCIUM 10.4 mg/dL (8.7-10.4)
[2023-10-07 07:33] LABS: CREATININE 2.2 mg/dL (0.6-1.0)
[2023-10-07 07:37] LABS: BASOPHILS % 0.5 % (0.0-2.0); EOSINOPHILS % 1.4 % (0.0-5.0); HEMATOCRIT. 36.8 % (36.0-48.0); HEMOGLOBIN. 11.4 g/dL (12.0-16.0); LYMPHOCYTES % 13.8 % (20.0-50.0); MEAN CORPUSCULAR HEMOGLOBIN 25.6 pg (28.0-32.0); MEAN CORPUSCULAR HGB CONC 31.1 g/dL (31.0-37.0); MEAN CORPUSCULAR VOLUME 82.5 fL (81.0-99.0); MEAN PLATELET VOLUME 9.6 fl (7.4-10.4); MONOCYTES % 8.1 % (2.0-8.0); NEUTROPHILS % 76.2 % (40.0-76.0); PLATELET 246 x1000/uL (130-400); RED BLOOD CELL COUNT 4.47 mill/uL (4.2-5.4); RED CELL DISTRIBUTION WIDTH 16.9 % (11.6-14.6); WHITE BLOOD COUNT 9.8 x1000/uL (4.5-11.0)
[2023-10-07 08:00] VITALS: BP 157/74; PULSE 64; RESP 18; TEMP 98.8
[2023-10-07 20:00] VITALS: BP 153/93; PULSE 87; RESP 18; TEMP 99.7
[2023-10-08 08:00] VITALS: BP 174/90; PULSE 68; RESP 18; TEMP 97.6
[2023-10-08] MEDS ORDERED: *PATIENT'S OWN MEDICATION STORAGE XX SCH (11:15)
[2023-10-08 20:00] VITALS: BP 148/76; PULSE 79; RESP 18; TEMP 98
[2023-10-09 05:07] VITALS: BP 155/85; PULSE 85; RESP 18
[2023-10-09] MEDS ORDERED: BENZ100C86 MT (10:57)
[2023-10-09] MEDS ORDERED: HYDR100T26 PO (10:58)
[2023-10-09] MEDS ORDERED: MONT-46 MT (10:59)
[2023-10-09 11:00] VITALS: BP 127/58; PULSE 79; TEMP 97.1; O2SAT 99
[2023-10-09] MEDS ORDERED: MONTELUKAST SODIUM 10MG TABLET PO SCH (21:00)
[2023-10-09] MEDS ORDERED: METOPROLOL TARTRATE 50MG TABLET PO SCH (21:00)
[2023-10-09] MEDS ORDERED: ATORVASTATIN CALCIUM 10MG TABLET PO SCH (21:00)
[2023-10-09] MEDS ORDERED: APIXABAN 2.5 MG TABLET PO SCH (21:00)
[2023-10-09] MEDS ORDERED: LATANOPROST 0.005% OPHTH DROPS 2.5ML EACHEYE SCH (21:00)
[2023-10-10] MEDS ORDERED: FAMOTIDINE(NEO) 1MG/ML SUSP PO SCH (09:00)
[2023-10-10] MEDS ORDERED: FUROSEMIDE 20MG TABLET PO SCH (09:00)
== END 2023-10-09 13:50 | disposition home health service (06) | DRG 70 ==
PROVIDERS: ADMIT Psychiatry & Neurology Neurology; ATTEND Internal Medicine Nephrology
DX: G93.40 Encephalopathy, unspecified (principal); I21.4 Non-ST elevation (NSTEMI) myocardial infarction; J18.9 Pneumonia, unspecified organism; J96.01 Acute respiratory failure with hypoxia; I13.0 Hypertensive heart and chronic kidney disease with heart failure and stage 1 through stage 4 chronic kidney disease, or unspecified chronic kidney disease; J44.1 Chronic obstructive pulmonary disease with (acute) exacerbation; I50.32 Chronic diastolic (congestive) heart failure; N17.9 Acute kidney failure, unspecified; F03.94 Unspecified dementia, unspecified severity, with anxiety; J44.0 Chronic obstructive pulmonary disease with (acute) lower respiratory infection; F03.93 Unspecified dementia, unspecified severity, with mood disturbance; G45.9 Transient cerebral ischemic attack, unspecified; I25.10 Atherosclerotic heart disease of native coronary artery without angina pectoris; I48.91 Unspecified atrial fibrillation; F41.9 Anxiety disorder, unspecified; G93.89 Other specified disorders of brain; I73.9 Peripheral vascular disease, unspecified; M48.02 Spinal stenosis, cervical region; I16.0 Hypertensive urgency; G62.9 Polyneuropathy, unspecified; M54.9 Dorsalgia, unspecified; R53.81 Other malaise; M48.01 Spinal stenosis, occipito-atlanto-axial region; L89.90 Pressure ulcer of unspecified site, unspecified stage; W18.30XA Fall on same level, unspecified, initial encounter; M19.90 Unspecified osteoarthritis, unspecified site; N18.30 Chronic kidney disease, stage 3 unspecified; E87.6 Hypokalemia; Z79.01 Long term (current) use of anticoagulants; Z95.5 Presence of coronary angioplasty implant and graft; Z95.810 Presence of automatic (implantable) cardiac defibrillator
CPT/HCPCS: 36415; 36600; 70496; 70498; 71045; 80048; 80053; 81003; 82140; 82375; 82805; 82962; 85025; 86705; 87340; 92523; 97110; 97116; 97150; 97162; 97166; 97530; 97535; 97542; C1893; J1940; Q9967

== ENCOUNTER → 2024-05-29 | Outpatient (CLI) | payer MEDICARE, MEDICAID ==
[~2024-05-29] MED LIST changes: -ALPR-392 PO; -AMIT10TA7 PO; +BENZ100C86 MT; +HYDR100T11 PO; +MONT-46 MT
== END | disposition home or self-care (01) ==
LOC: RAD 14:57
PROVIDERS: ATTEND Internal Medicine Critical Care Medicine
DX: Z03.89 Encounter for observation for other suspected diseases and conditions ruled out (principal); Z95.0 Presence of cardiac pacemaker
CPT/HCPCS: 73030

== ENCOUNTER 2024-12-23 15:12 | Inpatient (IN) | payer MEDICARE, MEDICAID ==
[~2024-12-23] VITALS: Ht 172.7 cm; Wt 67.2 kg
[~2024-12-23 15:12] MED LIST changes: -LATA2.5D14 EACHEYE; +LATA2.5D7 EACHEYE
[2024-12-23 16:09] LABS: HEMATOCRIT. 33.9 % (36.0-48.0); HEMOGLOBIN. 10.6 g/dL (12.0-16.0); MEAN PLATELET VOLUME 9.4 fl (7.4-10.4); PLATELET 167 x1000/uL (130-400); RED BLOOD CELL COUNT 3.85 mill/uL (4.2-5.4); RED CELL DISTRIBUTION WIDTH 14.8 % (11.6-14.6)
[2024-12-23 16:18] LABS: CREATININE 1.7 mg/dL (0.6-1.0); UREA NITROGEN BLOOD 15.0 mg/dL (9-23)
[2024-12-23 17:22] LABS: LYMPHOCYTES % MANUAL 11.0 % (20.0-60.0); MONOCYTES % MANUAL 7.0 % (2.0-8.0); NEUTROPHILS % MANUAL 82.0 % (45.0-75.0); PLATELET ESTIMATE NORMAL
[2024-12-23] MEDS ORDERED: ONDANSETRON HCL 4MG/2ML INJ IV PRN (17:45)
[2024-12-23] MEDS ORDERED: CEFTRIAXONE 2,000 MG in DEXT 5% WATER 100 ML IV SCH (17:45)
[2024-12-23] MEDS ORDERED: MAGNESIUM/ALUMINUM HYDROXIDE/SIMETHICONE 30ML UDC PO PRN (17:45)
[2024-12-23] MEDS ORDERED: CEFTRIAXONE 2GM/50ML 50ML IV SCH (18:00)
[2024-12-23 18:43] LABS: CLARITY URINE CLEAR (CLEAR); COLOR URINE YELLOW (YELLOW); GLUCOSE URINE NEGATIVE (NEGATIVE); KETONES URINE NEGATIVE (NEGATIVE); LEUKOCYTE ESTERASE URINE 1+ (NEGATIVE); NITRITE URINE NEGATIVE (NEGATIVE); OCCULT BLOOD URINE NEGATIVE (NEGATIVE); PH URINE 5.5 (4.5-8.0); PROTEIN URINE 1+ (NEGATIVE); SPECIFIC GRAVITY URINE 1.019 (1.005-1.030); UROBILINOGEN URINE 1.0 E.U./dL (0.2-1.0)
[2024-12-23] MEDS: SODIUM CHLORIDE 0.9% 1,000 ML IV ONE (18:58)
[2024-12-23] MEDS: CLONIDINE 0.1MG TABLET PO PRN (19:12)
[2024-12-23 19:22] LABS: RBC URINE 0-2 /hpf (0-2); SQUAMOUS EPITHELIAL CELL URINE 1+ /lpf (RARE/1+)
[2024-12-23 19:23] LABS: BACTERIA URINE 2+
[2024-12-23 20:04] LABS: TROPONIN I HIGH SENSITIVITY 9 ng/L (3.0-34)
[2024-12-23 20:05] LABS: ASPARTATE AMINOTRANSFERASE 19 IU/L (<34); BILIRUBIN DIRECT 0.2 mg/dL (<=3.0); BILIRUBIN TOTAL 0.6 mg/dL (0.1-1.0); PROTEIN TOTAL 6.6 g/dL (6.0-8.3)
[2024-12-23 20:23] LABS: TROPONIN I HIGH SENSITIVITY 10 ng/L (3.0-34)
[2024-12-23] MEDS: CEFTRIAXONE 2GM/50ML 50ML IV SCH (21:59)
[2024-12-23] MEDS ORDERED: NITROGLYCERIN 0.4MG TABLET SL SL PRN (23:00)
[2024-12-23] MEDS ORDERED: POTASSIUM CHLORIDE 10MEQ TABLET SR PO SCH (23:15)
[2024-12-23] MEDS ORDERED: LACTULOSE 20G/30ML UDC PO PRN (23:15)
[2024-12-23] MEDS ORDERED: ALPRAZOLAM 0.25 MG TABLET PO PRN (23:15)
[2024-12-23] MEDS: NIFEDIPINE XL 30MG TAB PO SCH (23:27)
[2024-12-24] VITALS (7 sets, daily range): BP systolic 141–190; BP diastolic 75–106; PULSE 64–91; RESP 16–20; TEMP 36.3–37.1; O2SAT 91–98
[2024-12-24] MEDS ORDERED: DIATR MEGLU/DIATRIZOATE SOLN 30ML PO SCH (06:45)
[2024-12-24 07:16] LABS: BASOPHILS % 0.2 % (0.0-2.0); EOSINOPHILS % 0.3 % (0.0-5.0); HEMATOCRIT. 33.1 % (36.0-48.0); HEMOGLOBIN. 10.5 g/dL (12.0-16.0); LYMPHOCYTES % 7.8 % (20.0-50.0); MEAN PLATELET VOLUME 10.2 fl (7.4-10.4); MONOCYTES % 6.3 % (2.0-8.0); NEUTROPHILS % 85.4 % (40.0-76.0); PLATELET 147 x1000/uL (130-400); RED BLOOD CELL COUNT 3.78 mill/uL (4.2-5.4); RED CELL DISTRIBUTION WIDTH 14.9 % (11.6-14.6)
[2024-12-24 07:36] LABS: CREATININE 1.5 mg/dL (0.6-1.0); UREA NITROGEN BLOOD 13.0 mg/dL (9-23)
[2024-12-24] MEDS: CETIRIZINE 10MG TABLET PO SCH (09:18)
[2024-12-24] MEDS: FAMOTIDINE 20MG TABLET PO SCH (09:18)
[2024-12-24] MEDS: METOPROLOL TARTRATE 25MG TABLET PO SCH (09:19)
[2024-12-24 10:57] LABS: ASPARTATE AMINOTRANSFERASE 15 IU/L (<34); BILIRUBIN DIRECT 0.2 mg/dL (<=3.0); BILIRUBIN TOTAL 0.5 mg/dL (0.1-1.0)
[2024-12-24 10:58] LABS: PROTEIN TOTAL 6.1 g/dL (6.0-8.3)
[2024-12-24] MEDS: ENOXAPARIN 30MG/0.3ML SYR SUBCUT SCH (18:30)
[2024-12-24] MEDS: ATORVASTATIN CALCIUM 10MG TABLET PO SCH (23:14)
[2024-12-24] MEDS: AMITRIPTYLINE 10MG TABLET PO SCH (23:15)
[2024-12-24] MEDS: MONTELUKAST SODIUM 10MG TABLET PO SCH (23:15)
[2024-12-25] VITALS (10 sets, daily range): BP systolic 99–159; BP diastolic 75–89; PULSE 63–78; RESP 16–20; TEMP 36.2–36.9; O2SAT 92–100
[2024-12-25] MEDS: IPRATROPIUM/ALBUTEROL 0.5-3(2.5)MG/3ML NEB HHN SCH (01:40)
[2024-12-25 05:35] LABS: LDL CHOLESTEROL 76.0 mg/dL (5-100); TRIGLYCERIDE 86.0 mg/dL (0-150)
[2024-12-25 05:40] LABS: CREATINE KINASE MB FRACTION 1.2 ng/mL (0.5-3.6); TROPONIN I HIGH SENSITIVITY 11.0 ng/L (3.0-34)
[2024-12-25 05:44] LABS: T4 FREE 1.32 ng/dL (0.89-1.76)
[2024-12-25 06:36] LABS: BASOPHILS % 0.3 % (0.0-2.0); EOSINOPHILS % 0.8 % (0.0-5.0); HEMATOCRIT. 35.2 % (36.0-48.0); HEMOGLOBIN. 11.3 g/dL (12.0-16.0); LYMPHOCYTES % 10.2 % (20.0-50.0); MEAN PLATELET VOLUME 9.7 fl (7.4-10.4); MONOCYTES % 7.3 % (2.0-8.0); NEUTROPHILS % 81.4 % (40.0-76.0); PLATELET 166 x1000/uL (130-400); RED BLOOD CELL COUNT 4.04 mill/uL (4.2-5.4); RED CELL DISTRIBUTION WIDTH 14.9 % (11.6-14.6)
[2024-12-25] MEDS: DIATR MEGLU/DIATRIZOATE SOLN 30ML ONE (06:55)
[2024-12-25 07:15] LABS: CREATINE KINASE MB FRACTION 1.4 ng/mL (0.5-3.6); CREATININE 1.5 mg/dL (0.6-1.0); UREA NITROGEN BLOOD 13.0 mg/dL (9-23)
[2024-12-25 07:16] LABS: TROPONIN I HIGH SENSITIVITY 16.0 ng/L (3.0-34)
[2024-12-25 08:07] LABS: ERYTHROCYTE SEDIMENTATION RATE 68 mm/hr (0-42)
[2024-12-25] MEDS: POTASSIUM CHLORIDE 10MEQ TABLET SR PO SCH (08:20)
[2024-12-25] MEDS: DIATR MEGLU/DIATRIZOATE SOLN 30ML PO SCH (08:20)
[2024-12-26] VITALS (10 sets, daily range): BP systolic 142–175; BP diastolic 75–100; PULSE 67–101; RESP 16–22; TEMP 36.6–37.1; O2SAT 95–100
[2024-12-26 08:59] LABS: BASOPHILS % 0.4 % (0.0-2.0); EOSINOPHILS % 0.8 % (0.0-5.0); HEMATOCRIT. 34.5 % (36.0-48.0); HEMOGLOBIN. 11.1 g/dL (12.0-16.0); LYMPHOCYTES % 10.1 % (20.0-50.0); MEAN PLATELET VOLUME 9.4 fl (7.4-10.4); MONOCYTES % 9.4 % (2.0-8.0); NEUTROPHILS % 79.3 % (40.0-76.0); PLATELET 173 x1000/uL (130-400); RED BLOOD CELL COUNT 3.97 mill/uL (4.2-5.4); RED CELL DISTRIBUTION WIDTH 14.8 % (11.6-14.6)
[2024-12-26 09:31] LABS: CREATININE 1.5 mg/dL (0.6-1.0)
[2024-12-26 09:32] LABS: UREA NITROGEN BLOOD 11.0 mg/dL (9-23)
[2024-12-27] VITALS (50 sets, daily range): BP systolic 96–146; BP diastolic 66–103; PULSE 69–83; RESP 5–26; TEMP 36.4–36.8; O2SAT 88–100
[2024-12-27] MEDS ORDERED: LIDOCAINE HCL/EPINEPHRINE 1%-EPI 1:100,000 20ML VIAL ONE (06:12)
[2024-12-27] MEDS ORDERED: THROMBIN (BOVINE) 5000 UNITS/VIAL TOP ONE (06:12)
[2024-12-27] MEDS ORDERED: GENTAMICIN SULF 40MG/ML 2ML VIAL ONE (06:12)
[2024-12-27 07:56] LABS: BASOPHILS % 0.3 % (0.0-2.0); EOSINOPHILS % 1.1 % (0.0-5.0); HEMATOCRIT. 38.9 % (36.0-48.0); HEMOGLOBIN. 12.7 g/dL (12.0-16.0); LYMPHOCYTES % 10.1 % (20.0-50.0); MEAN PLATELET VOLUME 9.2 fl (7.4-10.4); MONOCYTES % 7.5 % (2.0-8.0); NEUTROPHILS % 81.0 % (40.0-76.0); PLATELET 197 x1000/uL (130-400); RED BLOOD CELL COUNT 4.45 mill/uL (4.2-5.4); RED CELL DISTRIBUTION WIDTH 14.8 % (11.6-14.6)
[2024-12-27 08:20] LABS: CREATININE 1.5 mg/dL (0.6-1.0); UREA NITROGEN BLOOD 9.0 mg/dL (9-23)
[2024-12-27] MEDS ORDERED: ETOMIDATE 2MG/ML 10ML VIAL IV ONE (09:17)
[2024-12-27] MEDS ORDERED: ROCURONIUM BROMIDE 10MG/ML VIAL 5ML IV ONE (09:17)
[2024-12-27] MEDS ORDERED: CEFAZOLIN SODIUM 1000MG/VIAL ONE ×2 (09:17→10:02)
[2024-12-27] MEDS ORDERED: FENTANYL CITRATE/PF 50MCG/ML 2ML VIAL ONE (09:17)
[2024-12-27] MEDS ORDERED: MIDAZOLAM HCL 2 MG/2 ML VIAL ONE (09:17)
[2024-12-27] MEDS ORDERED: FAMOTIDINE 20MG/2ML VIAL IV ONE (10:19)
[2024-12-27] MEDS ORDERED: ACETAMINOPHEN 1000MG/100ML 100 ML IV ONE (10:19)
[2024-12-27] MEDS ORDERED: HYDROCODONE/ACETAMINOPHEN 5/325MG TABLET PO PRN (11:45)
[2024-12-27] MEDS ORDERED: NALOXONE HCL 0.4MG/ML VIAL IV PRN (12:15)
[2024-12-27] MEDS: DEXT 5%/LACTATED RINGERS 1,000 ML IV SCH (12:38)
[2024-12-27] MEDS: NICARDIPINE 100 MG in SODIUM CHLORIDE 0.9% 60 ML IV PRN (12:40)
[2024-12-27] MEDS: DEXAMETHASONE 4MG/ML 1ML VIAL IV SCH (12:57)
[2024-12-27] MEDS: CEFAZOLIN 1000MG PREMIX 50 ML IV SCH (13:17)
[2024-12-27] MEDS ORDERED: CEFAZOLIN SODIUM 1000MG/VIAL IV SCH (14:00)
[2024-12-27] MEDS: HYDROMORPHONE HCL/PF 1MG/ML INJ IV PRN (16:02)
[2024-12-28] VITALS (91 sets, daily range): BP systolic 99–160; BP diastolic 62–106; PULSE 70–112; RESP 12–36; TEMP 36.3–37.2; O2SAT 94–100
[2024-12-28] MEDS: TRAMADOL 50MG TABLET PO PRN (00:39)
[2024-12-28 07:02] LABS: HEMATOCRIT. 33.8 % (36.0-48.0); HEMOGLOBIN. 10.7 g/dL (12.0-16.0); MEAN PLATELET VOLUME 8.8 fl (7.4-10.4); PLATELET 203 x1000/uL (130-400); RED BLOOD CELL COUNT 3.82 mill/uL (4.2-5.4); RED CELL DISTRIBUTION WIDTH 14.8 % (11.6-14.6)
[2024-12-28 07:30] LABS: CREATININE 1.9 mg/dL (0.6-1.0); UREA NITROGEN BLOOD 15.0 mg/dL (9-23)
[2024-12-28 12:20] LABS: BAND% 1.0 % (1.0-6.0); LYMPHOCYTES % MANUAL 4.0 % (20.0-60.0); MONOCYTES % MANUAL 1.0 % (2.0-8.0); NEUTROPHILS % MANUAL 94.0 % (45.0-75.0); PLATELET ESTIMATE NORMAL
[2024-12-28] MEDS ORDERED: DEXAMETHASONE 4MG/ML 1ML VIAL IV SCH (14:45)
[2024-12-29] VITALS (83 sets, daily range): BP systolic 104–171; BP diastolic 67–140; PULSE 68–119; RESP 9–29; TEMP 36.4–37; O2SAT 92–100
[2024-12-29 11:48] LABS: HEMATOCRIT. 33.2 % (36.0-48.0); HEMOGLOBIN. 10.5 g/dL (12.0-16.0); MEAN PLATELET VOLUME 8.8 fl (7.4-10.4); PLATELET 231 x1000/uL (130-400); RED BLOOD CELL COUNT 3.80 mill/uL (4.2-5.4); RED CELL DISTRIBUTION WIDTH 15.2 % (11.6-14.6)
[2024-12-29 11:58] LABS: CREATININE 2.1 mg/dL (0.6-1.0); UREA NITROGEN BLOOD 19.0 mg/dL (9-23)
[2024-12-29 12:28] LABS: LYMPHOCYTES % MANUAL 3.0 % (20.0-60.0); MONOCYTES % MANUAL 2.0 % (2.0-8.0); NEUTROPHILS % MANUAL 95.0 % (45.0-75.0); PLATELET ESTIMATE NORMAL
[2024-12-29] MEDS: CLONIDINE 0.1MG TABLET PO PRN (14:41)
[2024-12-29] MEDS: ACETAMINOPHEN 325MG TABLET PO PRN (14:41)
[2024-12-30] VITALS (16 sets, daily range): BP systolic 117–144; BP diastolic 74–97; PULSE 76–97; RESP 16–27; TEMP 36.8–37.1; O2SAT 95–100
[2024-12-30 07:42] LABS: HEMATOCRIT. 33.0 % (36.0-48.0); HEMOGLOBIN. 10.4 g/dL (12.0-16.0); MEAN PLATELET VOLUME 8.8 fl (7.4-10.4); PLATELET 217 x1000/uL (130-400); RED BLOOD CELL COUNT 3.80 mill/uL (4.2-5.4); RED CELL DISTRIBUTION WIDTH 15.0 % (11.6-14.6)
[2024-12-30 08:01] LABS: CREATININE 2.0 mg/dL (0.6-1.0); UREA NITROGEN BLOOD 18.0 mg/dL (9-23)
[2024-12-30 11:36] LABS: BAND% 2.0 % (1.0-6.0); LYMPHOCYTES % MANUAL 2.0 % (20.0-60.0); MONOCYTES % MANUAL 6.0 % (2.0-8.0); NEUTROPHILS % MANUAL 90.0 % (45.0-75.0)
[2024-12-30 11:37] LABS: PLATELET ESTIMATE NORMAL
[2024-12-30 13:30] LABS: BG BASE EXCESS -1.1 mmol/L (-2.0-3.0); BG CARBOXYHEMOGLOBIN 0.5 % (0.5-1.5); BG DEOXYHEMOGLOBIN 1.4 % (0.0-5.0); BG FLOW(L/min) 1.00 L/min; BG FRACTION INSPIRED OXYGEN 24; BG HCO3 ACT 22.4 mmol/L (21.0-28.0); BG METHEMOGLOBIN 0.1 % (0.5-1.5); BG OXYGEN SATURATION 98.6 % (94.0-98.0); BG OXYHEMOGLOBIN 98.0 % (94.0-98.0); BG PCO2 33.7 mmHg (32.0-45.0); BG PH 7.441 (7.350-7.450); BG PO2 115.2 mmHg (83.0-108.0); BG SAMPLE SITE RIGHT RADIAL; BG TOTAL HEMOGLOBIN 12.0 g/dL (12.0-16.0); BG VENT MODE NASAL CANNULA
[2024-12-30] MEDS: METOPROLOL TARTRATE 50MG TABLET PO SCH (20:28)
[2024-12-30] MEDS: IPRATROPIUM/ALBUTEROL 0.5-3(2.5)MG/3ML NEB HHN ONE (20:40)
[2024-12-31] VITALS (20 sets, daily range): BP systolic 116–162; BP diastolic 75–110; PULSE 72–92; RESP 15–26; TEMP 36.3–37; O2SAT 97–100
[2024-12-31] MEDS: IPRATROPIUM/ALBUTEROL 0.5-3(2.5)MG/3ML NEB HHN SCH ×2 (02:19→21:13)
[2025-01-01] VITALS (13 sets, daily range): BP systolic 125–163; BP diastolic 76–113; PULSE 73–101; RESP 15–21; TEMP 36.4–36.8; O2SAT 97–100
[2025-01-01] MEDS ORDERED: HYDRALAZINE HCL 50MG TABLET PO SCH (21:00)
[2025-01-02] MEDS ORDERED: DONEPEZIL HCL 5MG TABLET PO SCH (09:00)
== END 2025-01-01 17:45 | DRG 471 ==
LOC: ER 15:12 → 7WST 19:27 → EDBEDREQTM 19:31 → EDBEDREQ 19:31 → ENRESERV 21:47 → MICUSO 12-27 12:16 → MICUNO 12-28 09:21 → 5EST 12-29 21:22
PROVIDERS: ADMIT Internal Medicine Nephrology; ATTEND Internal Medicine Nephrology
PROC: 0RG2071 Fusion of 2 or more Cervical Vertebral Joints with Autologous Tissue Substitute, Posterior Approach, Posterior Column, Open Approach (ICD-10-PCS; principal; 2024-12-27)
PROC: 0RB30ZZ Excision of Cervical Vertebral Disc, Open Approach (ICD-10-PCS; 2024-12-27)
PROC: 00NW0ZZ Release Cervical Spinal Cord, Open Approach (ICD-10-PCS; 2024-12-27)
PROC: 4A11X4G Monitoring of Peripheral Nervous Electrical Activity, Intraoperative, External Approach (ICD-10-PCS; 2024-12-27)
DX: M48.02 Spinal stenosis, cervical region (principal); G82.50 Quadriplegia, unspecified; I50.31 Acute diastolic (congestive) heart failure; I13.0 Hypertensive heart and chronic kidney disease with heart failure and stage 1 through stage 4 chronic kidney disease, or unspecified chronic kidney disease; G99.2 Myelopathy in diseases classified elsewhere; I42.9 Cardiomyopathy, unspecified; I48.20 Chronic atrial fibrillation, unspecified; N17.9 Acute kidney failure, unspecified; N39.0 Urinary tract infection, site not specified; M48.061 Spinal stenosis, lumbar region without neurogenic claudication; E87.6 Hypokalemia; N18.30 Chronic kidney disease, stage 3 unspecified; I25.10 Atherosclerotic heart disease of native coronary artery without angina pectoris; F41.9 Anxiety disorder, unspecified; I73.9 Peripheral vascular disease, unspecified; M19.90 Unspecified osteoarthritis, unspecified site; R41.89 Other symptoms and signs involving cognitive functions and awareness; B19.20 Unspecified viral hepatitis C without hepatic coma; R13.10 Dysphagia, unspecified; G89.29 Other chronic pain; D72.829 Elevated white blood cell count, unspecified; M54.16 Radiculopathy, lumbar region; R63.4 Abnormal weight loss; Z68.22 Body mass index [BMI] 22.0-22.9, adult; E78.5 Hyperlipidemia, unspecified; I16.0 Hypertensive urgency; J44.9 Chronic obstructive pulmonary disease, unspecified; D64.9 Anemia, unspecified; I50.9 Heart failure, unspecified; M54.12 Radiculopathy, cervical region; Z96.649 Presence of unspecified artificial hip joint; Z86.73 Personal history of transient ischemic attack (TIA), and cerebral infarction without residual deficits; Z95.810 Presence of automatic (implantable) cardiac defibrillator; Z79.01 Long term (current) use of anticoagulants; Z88.5 Allergy status to narcotic agent; Z95.5 Presence of coronary angioplasty implant and graft; Z79.899 Other long term (current) drug therapy; Z82.49 Family history of ischemic heart disease and other diseases of the circulatory system
CPT/HCPCS: 36415; 36600; 71045; 72040; 72128; 72131; 73630; 74176; 76000; 80048; 80061; 80076; 81003; 82270; 82375; 82550; 82553; 82805; 83036; 83735; 83880; 84439; 84443; 84484; 85025; 85379; 85651; 86850; 86900; 92610; 93005; 93306; 93970; 94070; 94640; 94664; 94760; 96360; 97110; 97116; 97162; 97164; 97166; 97168; 97530; 97535; 98960; 99285; A4606; J0690; J0696; J1100; J1171; J1308; J1580; J1650; J2004; J2250; J3010; J3490; J7030; J7050; J7121; L0172; Q9963; C1713; J0131